=== PATIENT | female | born 1975 | race Two or more races ===

== ENCOUNTER 2025-07-31 06:56 | Outpatient (REF) | payer OTHER, SELFPAY ==
--- NOTE | ~2025-07-31 | US_ITS ---
Examination: US Extremity Nonvas Limited left Technique: Grayscale imaging was performed in the right axillary region INDICATION: Palpable lump in the right axilla Prior: None FINDINGS: Normal anatomic structures are identified without visible mass, fluid collection, or other abnormality. US/US Extremity Nonvas Limited LT IMPRESSION: Unremarkable left axillary ultrasound. If there is a convincing palpable mass, consider MRI without and with IV contrast to evaluate this region. Electronically signed by: Ellis Blake MD 07/31/2025 04:49 PM EDT
--- NOTE | ~2025-07-31 | US_ITS ---
Examination: US Extremity Nonvas Limited Rt Technique: Grayscale imaging was performed in the right axillary region INDICATION: Palpable lump in the right axilla Prior: None FINDINGS: Normal anatomic structures are identified without visible mass, fluid collection, or other abnormality. US/US Extremity Nonvas Limited RT IMPRESSION: Unremarkable right axillary ultrasound. Electronically signed by: Ellis Blake MD 07/31/2025 04:48 PM EDT
--- OUTSIDE RECORDS SUMMARY | 2025-07-31 06:59 | XMS_ITS | Encounter Summary ---
Author Organization [facility] Address [address] [place] [address] Phone Care Team Providers Care Correctional Cook Name Role Phone Frida Mercer MD Primary Care Provider + Josseline Adam CNP Primary Care Provider +[phone] Encounter Details Date Type Department Care Team (Late st Contact Info) Description 06/09/2022 Procedure Pass [address] [place] [address] Social History Tobacco Use Types Packs/Day Years Used Date Smoking Tobacco: Former Cigarettes 1 15 0 11/22/1991 - 11/22/2006 Smokeless Tobacco: Never Alcohol Use Standard Drinks/Week Comments Not Currently 0 (1 standard drink = 0.6 oz pur e alcohol) 1-2 drinks monthly Comments No Sex and Gender Information Value Date Recorded Sex Assigned at Female 11/04/2018 9:47 AM EST Legal Sex Female 9:32 PM EDT Gender Identity Female 11/04/2018 9:47 AM EST Sexual Orientation Queer 10/07/2020 11 :11 AM EST documented as of this encounter Plan of Treatment Upcoming Encounters Date Type Department Care Team (Late st Contact Info) Description 07/25/2025 Procedure Pass [address] [place] [address] 03/13/2026 1:45 PM EDT Appointment [address] [place] [address] Josseline Adam VARNISH FINISHER 15 [facility] 6 [place] [address] [email or web address] documented as of this encounter Visit Diagnoses Not on filedocumented in this encounter Care Teams Correctional Cook Relationship Specialty Start Date End Date Frida Mercer MD [address] [place] [address] PCP - General Family Medicine 04/05/18 07/24/25 Josseline Adam CNP [address] [place] [address] [email or web address] PCP - General Nurse Practitioner 07/25/25 documented as of this encounter Additional Source Comments The information contained in this document represents components of the legal health record. It is not the complete legal health record.[facility]
--- OUTSIDE RECORDS SUMMARY | 2025-07-31 06:59 | XMS_ITS | Encounter Summary ---
Author Organization [facility] Address [address] [place] [address] Phone Care Team Providers Care Servicing Manager Name Role Phone Frida Mercer MD Primary Care Provider + Josseline Adam CNP Primary Care Provider [phone] Encounter Details Date Type Department Care Team (Late st Contact Info) Description 03/21/2024 Ancillary Orders [facility], X-Ray - [address] [place] [address] Addison Nelson PA [address] [place] [address] Left knee pain, unspecified chronicity (Primary Dx) Social History Tobacco Use Types Packs/Day Years Used Date Smoking Tobacco: Former Cigarettes 1 15 0 11/22/1991 - 11/22/2006 Smokeless Tobacco: Never Alcohol Use Standard Drinks/Week Comments Not Currently 0 (1 standard drink = 0.6 oz pur e alcohol) 1-2 drinks monthly Education Answer Date Recorded Are you interested in more education? Not on effie e 03/19/2023 Are you concerned about learning? Not on file 03/19/2023 No 03/19/2023 No 03/19/2023 Digital Access Answer Date Recorded No 04/17/2023 No 04/17/2023 Reliable internet access at home? Not on file 04/17/2023 Device with a working camera? Not on file Comments No Sex and Gender Information Value Date Recorded Sex Assigned at Female 11/04/2018 9:47 AM EST Legal Sex Female 9:32 PM EDT Gender Identity Female 11/04/2018 9:47 AM EST Sexual Orientation Queer 10/07/2020 11 :11 AM EST documented as of this encounter Plan of Treatment Upcoming Encounters Date Type Department Care Team (Late st Contact Info) Description 07/25/2025 Procedure Pass [address] [place] [address] 03/13/2026 1:45 PM EDT Appointment [address] [place] [address] Josseline Adam, REPAIR WELDER 15 [facility], [facility] 6 [place] [address] documented as of this encounter Results * XR KNEE 4 OR MORE VIEWS (RIGHT) (03/21/2024 3:38 PM EDT) Anatomical Region Laterality Modality Knee Right Computed Radiogr aphy 03/23/2024 5:48 PM EDT Impressions 03/24/2024 8:45 AM EDT No explanation for pain. Narrative 03/24/2024 8:45 AM EDT XR KNEE 4 OR MORE VIEWS (RIGHT) Referring clinician's provided indication for this examination in [facility]: Pain COMPARISON: X-ray 04/05/2018. FINDINGS: Right Knee: Joint spaces well-maintained. No significant arthritic changes. No fracture, subluxation or dislocation. No evidence of a joint effusion. No other significant changes. Procedure Note Miles Chung MD - 03/24/2024 XR KNEE 4 OR MORE VIEWS (RIGHT) Referring clinician's provided indication for this examination in [facility]:Pain COMPARISON: X-ray 04/05/2018. FINDINGS: Right Knee: Joint spaces well-maintained. No significant arthriticchanges. No fracture, subluxation or dislocation. No evidence of a jointeffusion. No other significant changes. IMPRESSION: No explanation for pain. Addison ROBIN IMG XR LOWER EXTREMITY Final R esult documented in this encounter Visit Diagnoses Diagnosis Left knee pain, unspecified chronicity- Primary Left knee pain, unspecified chronicity documented in this encounter Care Teams Servicing Manager Relationship Specialty Start Date End Date Frida Mercer MD [address] [place] [phone] [email or web address] PCP - General Family Medicine 04/05/18 07/24/25 Josseline Adam CNP [address] [place] [address] [email or web address] PCP - General Nurse Practitioner 07/25/25 documented as of this encounter Additional Source Comments The information contained in this document represents components of the legal health record. It is not the complete legal health record.[facility]
--- OUTSIDE RECORDS SUMMARY | 2025-07-31 06:59 | XMS_ITS | Encounter Summary ---
Author Organization [facility] Address [address] [place] [address] Phone Care Team Providers Care Wool Hat Hydraulicker Name Role Phone Frida Mercer MD Primary Care Provider + Josseline Adam CNP Primary Care Provider [phone] Encounter Details Date Type Department Care Team (Late st Contact Info) Description 09/23/2020 Procedure Pass [address] [place] [address] Social History Tobacco Use Types Packs/Day Years Used Date Smoking Tobacco: Former Cigarettes 2006 Smokeless Tobacco: Never Alcohol Use Standard Drinks/Week Comments Yes 0 (1 standard drink = 0.6 oz [...] st Contact Info) Description 07/25/2025 Procedure Pass [address] [place] [address] 03/13/2026 1:45 PM EDT Appointment [address] [place] [address] Josesline Adam, INVESTOR RELATIONS ANALYST [address] [facility] 6 [place] [address] documented as of this encounter Visit Diagnoses Not on filedocumented in this encounter Care Teams Wool Hat Hydraulicker Relationship Specialty Start Date End Date Frida Mercer MD [address] [place] [address] PCP - General Family Medicine 04/05/18 07/24/25 Josseline Adam CNP [address] [place] [address] PCP - General Nurse Practitioner 07/25/25 documented as of this encounter Additional Source Comments The information contained in this document represents components of the legal health record. It is not the complete legal health record.[facility]
--- OUTSIDE RECORDS SUMMARY | 2025-07-31 06:59 | XMS_ITS | Encounter Summary ---
Author Organization [facility] Address [address] [place] [address] Phone Care Team Providers Care Weight Clerk Name Role Phone Frida Mercer MD Primary Care Provider + Josseline Adam CNP Primary Care Provider [phone] Encounter Details Date Type Department Care Team (Late st Contact Info) Description 06/17/2023 Procedure Pass [facility] - [address] [place] [address] Social History Tobacco Use Types Packs/Day Years [...] st Contact Info) Description 07/25/2025 Procedure Pass [address] [place] [address] 03/13/2026 1:45 PM EDT Appointment [address] [place] [address] Josseline Adam, BIN PILER 15 [facility], [facility] 6 [place] [address] documented as of this encounter Visit Diagnoses Not on filedocumented in this encounter Care Teams Weight Clerk Relationship Specialty Start Date End Date Frida Mercer MD [address] [place] [address] PCP - General Family Medicine 04/05/18 07/24/25 Josseline Adam BIN PILER [address] [place] [address] PCP - General Nurse Practitioner 07/25/25 documented as of this encounter Additional Source Comments The information contained in this document represents components of the legal health record. It is not the complete legal health record.[facility]
--- OUTSIDE RECORDS SUMMARY | 2025-07-31 06:59 | XMS_ITS | Encounter Summary ---
Author Organization [facility] Address [address] [address] Phone Care Team Providers Care Tactical/Mobile Watch Officer Name Role Phone Frida Mercer MD Primary Care Provider + Josseline Adam CNP Primary Care Provider [phone] Encounter Details Date Type Department Care Team (Late st Contact Info) Description 09/16/2020 Transcribe Orders Virtual Department 30 [place] [address] Frida Mercer MD [address] [place] [address] Pelvic and perineal pain (Primary Dx) Social History Tobacco Use Types Packs/Day Years Used Date Smoking Tobacco: Former Cigarettes 1 2006 Smokeless Tobacco: Never Alcohol Use Standard [...] st Contact Info) Description 07/25/2025 Procedure Pass [address] [place] [address] 03/13/2026 1:45 PM EDT Appointment [address] [place], [place] [address] Josseline Adam, BLACK ASH WORKER [address] [address] [email or web address] documented as of this encounter Results * US PELVIS TRANSABDOMINAL PLUS TRANSVAGINAL (10/07/2020 1:52 PM EST) Anatomical Region Laterality Modality Pelvis, Uterus/Adnexa Ultrasound 10/07/2020 2:35 PM EST Impressions 10/07/2020 2:48 PM EST 1. The endometrium is within the upper limits of normal in thickness and mildly heterogeneous possibly due to mild hyperplasia. This can be correlated clinically. 2. 9 mm left paraovarian cyst which may be clinically insignificant. 3. No clear explanation for pain. Narrative 10/07/2020 2:48 PM EST HISTORY: Pain for a few months. EXAM: Transabdominal and transvaginal pelvic ultrasounds. COMPARISON: None. FINDINGS: Uterus: Uterus is normal in size. Uterus is anteverted. It measures 9.1 cm x 4.9 cm x 3.7 cm. The endometrial stripe measures 10 mm in thickness. It is mildly heterogeneous. Trace of cystic change within the endometrium. Multiple small nabothian cysts within the cervix. Ovaries: The right ovary is normal in size and demonstrates a normal follicular pattern. It measures 3.7 cm x 1.6 cm x 1.5 cm. The left ovary measures 3.3 cm x 2.5 cm x 2.2 cm. There is a 9 mm anechoic cyst which appears separate from the left ovary in the adjacent adnexa. Normal arterial and venous blood flow demonstrated to both ovaries. Other: No evidence of free fluid. Procedure Note Miles Chung MD - 10/07/2020 HISTORY: Pain for a few months. EXAM: Transabdominal and transvaginal pelvic ultrasounds. COMPARISON: None. FINDINGS: Uterus: Uterus is normal in size. Uterus is anteverted. It measures 9.1cm x 4.9 cm x 3.7 cm. The endometrial stripe measures 10 mm in thickness.It is mildly heterogeneous. Trace of cystic change within the endometrium.Multiple small nabothian cysts within the cervix. Ovaries: The right ovary is normal in size and demonstrates a normalfollicular pattern. It measures 3.7 cm x 1.6 cm x 1.5 cm. The left ovarymeasures 3.3 cm x 2.5 cm x 2.2 cm. There is a 9 mm anechoic cyst whichappears separate from the left ovary in the adjacent adnexa. Normalarterial and venous blood flow demonstrated to both ovaries. Other: No evidence of free fluid. IMPRESSION: 1. The endometrium is within the upper limits of normal in thickness andmildly heterogeneous possibly due to mild hyperplasia. This can becorrelated clinically. 2. 9 mm left paraovarian cyst which may be clinically insignificant. 3. No clear explanation for pain. us Frida Mercer MD IMG US PELVIS Final Re sult documented in this encounter Visit Diagnoses Diagnosis Pelvic and perineal pain- Primary Pelvic and perineal pain documented in this encounter Care Teams Tactical/Mobile Watch Officer Relationship Specialty Start Date End Date Frida Mercer MD [address] [place] [phone] PCP - General Family Medicine 04/05/18 07/24/25 Josseline Adam CNP [address] [place] [address] PCP - General Nurse Practitioner 07/25/25 documented as of this encounter Additional Source Comments The information contained in this document represents components of the legal health record. It is not the complete legal health record.[facility]
--- OUTSIDE RECORDS SUMMARY | 2025-07-31 06:59 | XMS_ITS | Clinical Summary ---
Author Organization [facility] Address [address] [place] [address] Phone Care Team Providers Care Complaint Inspector Name Role Phone Josseline Adam CNP Primary Care Provider Allergies Active Allergy Reactions Criticality Noted Date Comments Morphine Nausea and/or Vomiting 11/08/2018 Medications albuterol 90 mcg/actuation inhaler Inhale 2 puffs into the lungs every 6 (six) hours as needed for wheezing. Active FLOVENT HFA 44 mcg/actuation inhaler 10/19/2018 Active YASMIN OROZCO [facility] Spcr 10/19/2018 Active acetaminophen (TYLENOL) 500 MG tablet Take 500 mg by mouth every 6 (six) hours as needed for pain (specific location in comments). Active acetaminophen (TYLENOL) 325 mg tablet Take 2 tablets (650 mg total) by mouth every 4 (four) hours as needed for mild pain. 11/10/2018 Active docusate sodium (COLACE) 100 MG capsule Take 1 capsule (100 mg total) by mouth 2 (two) times a day. 11/10/2018 Active aspirin 325 MG tablet Take 1 tablet (325 mg total) by mouth daily. 11/10/2018 Active Active Problems Problem Noted Date Diagnosed Date Closed fracture of proximal lateral malleolus of ankle with routine healing Encounters Date Type Department Care Team Description 07/25/2025 Transcribe Orders Virtual Department 30 [place] [address] Josseline Adam CNP Breast screening (Primary Dx) from Last 3 Months Family History Medical History Relation Comments Cancer Father Leukemia CLL Breast cancer Maternal Grandmother Cancer Sister bone cancer Relation Status Comments Father Maternal Grandmother Sister Social History Tobacco Use Types Packs/Day Years Used Date Smoking Tobacco: Former Cigarettes 1 15 0 11/22/1991 - 11/22/2006 Smokeless Tobacco: Never Tobacco Cessation:Counseling Given: Not Answered Alcohol Use Standard Drinks/Week Comments Not Currently [...] Orientation Queer 10/07/2020 11 :11 AM EST Last Filed Vital Signs Vital Sign Reading Time Taken Comments Blood Pressure 118/78 11/10/2018 7:00 PM EST Pulse 80 11/10/2018 7:00 PM EST Temperature 36.8 C (98.2 F) 11/10/2018 5:00 PM EST Respiratory Rate 20 11/10/2018 7:00 PM EST Oxygen Saturation 99% 11/10/2018 7:00 PM EST Inhaled Oxygen Concentration - - Weight 90.3 kg (199 lb) 12/20/2018 8:44 AM EST Height 182.9 cm (6' 0.01 ) 12/20/2018 8:44 AM ES T Body Mass Index 26.98 12/20/2018 8:44 AM EST Plan of Treatment Upcoming Encounters Date Type Department Care Team (Late st Contact Info) Description 07/25/[address] [place] [address] 03/13/2026 1:45 PM EDT Appointment [address] [place] [address] Josseline Adam, OFFSHORE WIND TURBINE TECHNICIAN 15 [facility], [facility] 6 [place] [address] [email or web address] Environmental Health Maintenance Due Date Last Done Comments Adult Td,Tdap Booster 1973 LIPID PANEL 1973 DEPRESSION SCREENING 1985 SMOKING Hx and SMOKELESS TOBACCO SCREENING 1986 HEPATITIS C SCREENING 1991 HIV ONE-TIME SCREENING (18-65 YEARS) 1991 PAP SMEAR 1994 COLOGUARD 2018 COLONOSCOPY 2018 COLORECTAL CANCER SCREENING 2018 FIT TEST 2018 FOBT 2018 SIGMOIDOSCOPY 2018 VIRTUAL COLONOSCOPY 2018 PNEUMOCOCCAL VACCINES (50+ years) (1 of 1 - PCV) 2023 ZOSTER VACCINES (1 of 2) 2023 INFLUENZA VACCINE (#1) 2025 COVID-19 VACCINE (3 - season) 2025 04/07/2021, 03/08/2021 MAMMOGRAM 07/23/2025 07/23/2023, 06/22, 10/24/2020, Additional history exists HEPATITIS A VACCINES Aged Out No long er eligible based on patient's age to complete this topic HIB VACCINES Aged Out No longer eligi ble based on patient's age to complete this topic MENINGOCOCCAL VACCINES (ACWY) Aged Out No longer eligible based on patient's age to complete this topic MENINGOCOCCAL VACCINES (B) Aged Out N o longer eligible based on patient's age to complete this topic Medical Devices Implanted Type Area Brand Marketing Coordinator Device Identifier Shelf Expiration Date Model / Serial / Lot Plate Bone 81mm Tubular One Third With Collar Lcp Stainless Steel 7 Hole Ea - [id number] Implanted:Qty: 1 on 11/10/2018 by Segundo Ty DO at [facility] [employer] Left: Ankle SYNTHES 11/21/2050 [id number] / / N/A Description:PLATE APART OF A STERILE KIT, NO LOT NUMBER AND NO EXPIRATION DATE Screw Bone 3.5x14mm Cortex Self Tapping Fully Threaded Hex Head S/S Ea - [id number] Implanted:Qty: 2 on 11/10/2018 by Segundo Ty DO at [facility] Left: Ankle SYNTHES 11/21/2099 [id number] / / N/A Screw Bone 3.5x16mm Cortex Self Tapping Fully Threaded Hex Head S/S Ea - [id number] Implanted:Qty: 1 on 11/10/2018 by Segundo Ty DO at [facility] Left: Ankle SYNTHES 11/21/2099 [id number] / / N/A Screw Bone 3.5x20mm Cortex Self Tapping Fully Threaded Hex Head S/S - [id number] Implanted:Qty: 2 on 11/10/2018 by Segundo Ty DO at [facility] Left: Ankle SYNTHES 11/21/2099 [id number] / / N/A Screw Bone 3.5x24mm Cortex Self Tapping Fully Threaded Hex Head S/S Ea - [id number] Implanted:Qty: 1 on 11/10/2018 by Segundo Ty DO at [facility] Left: Ankle SYNTHES 11/21/2099 [id number] / / N/A Procedures Procedure Name Priority Date/Time Associated Diagnosis Comments BI MAMMOGRAM SCREENING WITH TOMOSYNTHESIS WITH CAD (BILATERAL) Routine 07/23/2023 8:32 AM EDT Breast screening from Last 3 Months or Most Recently Relevant to Health Maintenance Results * BI MAMMOGRAM SCREENING WITH TOMOSYNTHESIS WITH CAD (BILATERAL) (07/23/2023 8:32 AM EDT) Anatomical Region Laterality Modality Breast Left, Breast Right, Breast Bilateral Bila teral Mammography 08/05/2023 1:58 PM EDT Impressions 08/05/2023 2:39 PM EDT No mammographic signs of malignancy. Annual screening is recommended. BI-RADS CATEGORY: 1 - Negative. DENSITY: There are scattered fibroglandular densities. Narrative 08/05/2023 2:39 PM EDT Bilateral mammography is performed in conjunction with computed aided detection. 3-D tomography along with 2-D C view imaging was also performed. Comparison made to previous dated as far back as 12/25/2012 and as recent as 07/07/2022. No suspicious masses, areas of architectural distortion or suspicious microcalcifications. Procedure Note Miles Chung MD - 08/05/2023 Bilateral mammography is performed in conjunction with computed aideddetection. 3-D tomography along with 2-D C view imaging was alsoperformed. Comparison made to previous dated as far back as 12/25/2012 andas recent as 07/07/2022. No suspicious masses, areas of architectural distortion or suspiciousmicrocalcifications. IMPRESSION: No mammographic signs of malignancy. Annual screening is recommended. BI-RADS CATEGORY: 1 - Negative. DENSITY: There are scattered fibroglandular densities. [place] [facility] Final Resul t from Last 3 Months or Most Recently Relevant to Health Maintenance Insurance [employer] TOTAL CHOICE INDEMNITY [employer] TOTAL CHOICE INDEMNITY [employer] TOTAL CHOICE INDEMNITY [employer] TOTAL CHOICE INDEMNITY [employer] TOTAL CHOICE INDEMNITY [employer] TOTAL CHOICE INDEMNITY [employer] TOTAL CHOICE INDEMNITY [employer] TOTAL CHOICE [place] [address] [place] [address] TOTAL CHOICE INDEMNITY [employer] Advance Directives For more information, please contact: [phone] (9AM - 5PM [facility], Wednesday-Wednesday) * Full Code (Presumed) (Latest Code Status on File) Date Activated Date Inactivated Comments 11/10/2018 2:27 PM 11/10/2018 9:30 PM Care Teams Complaint Inspector Relationship Specialty Start Date End Date Josseline Adam, KESHAWN [address] [place] [address] PCP - General Nurse Practitioner 07/25/25 Additional Source Comments The information contained in this document represents components of the legal health record. It is not the complete legal health record.[facility]
--- OUTSIDE RECORDS SUMMARY | 2025-07-31 06:59 | XMS_ITS | Encounter Summary ---
Author Organization [facility] Address [address] [place] [address] Phone Care Team Providers Care Immigration Lawyer Name Role Phone Frida Mercer MD Primary Care Provider + Josseline Adam CNP Primary Care Provider [phone] Encounter Details Date Type Department Care Team (Late st Contact Info) Description 11/10/2018 Procedure Pass OR Admitting Dept - Virtual Department 30 [place] [address] Social History Tobacco Use Types Packs/Day Years Used Date Smoking Tobacco: Former Cigarettes 2006 Smokeless Tobacco: Never Alcohol Use Standard Drinks/Week Comments Yes 0 (1 standard drink = 0.6 oz pur e alcohol) 1-2 drinks monthly Comments Unknown Sex and Gender Information Value Date Recorded Sex Assigned at Female 11/04/2018 9:47 AM EST Legal Sex Female 9:32 PM EDT Gender Identity Female 11/04/2018 9:47 AM EST Sexual Orientation Queer 10/07/2020 11 :11 AM EST documented as of this encounter Plan of Treatment Upcoming Encounters Date Type Department Care Team (Late Contact Info) Description 07/25/2025 Procedure Pass [address] [place] [address] 03/13/2026 1:45 PM EDT Appointment [address] [place] [address] Josseline Adam, PAIL TESTER [address] [address] documented as of this encounter Visit Diagnoses Not on filedocumented in this encounter Additional Health Concerns Infection Onset Date Last Indicated Resolved Time CoV-Risk 05/29/2020 05/29/2020 06/12/2020 1:24 AM EDT documented as of this encounter Care Teams Immigration Lawyer Relationship Specialty Start Date End Date Frida Mercer MD [address] [place] [address] PCP - General Family Medicine 04/05/18 07/24/25 Josseline Adam CNP [address] [place] [address] [email or web address] PCP - General Nurse Practitioner 07/25/25 documented as of this encounter Additional Source Comments The information contained in this document represents components of the legal health record. It is not the complete legal health record.[facility]
--- OUTSIDE RECORDS SUMMARY | 2025-07-31 06:59 | XMS_ITS | Encounter Summary ---
Author Organization [facility] Address [address] [place] [phone] Phone Care Team Providers Care Cosmetics Machine Operator Name Role Phone Frida Mercer MD Primary Care Provider + Josseline Adam CNP Primary Care Provider [phone] Encounter Details Date Type Department Care Team (Late st Contact Info) Description 04/05/2018 Ancillary Orders [facility], X-Ray - [address] [place] [address] Nata Rodriguez PA [address] [place] [address] [email or web address] Right knee pain, unspecified chronicity Social History Tobacco Use Types Packs/Day Years Used Date Smoking Tobacco: Never Assessed Comments Unknown Sex and Gender Information Value Date Recorded Sex Assigned at Female 11/04/2018 9:47 AM EST Legal Sex Female 9:32 PM EDT Gender Identity Female 11/04/2018 9:47 AM EST Sexual Orientation Queer 10/07/2020 11 :11 AM EST documented as of this encounter Plan of Treatment Upcoming Encounters Date Type Department Care Team (Late st Contact Info) Description 07/25/2025 Procedure Pass [address] [place] [address] 03/13/2026 1:45 PM EDT Appointment [address] [place] [address] Josseline Adam, RN ENDOCRINOLOGY 15 [facility], [address] [place] [address] [email or web address] documented as of this encounter Results * XR KNEE 4 OR MORE VIEWS (RIGHT) (04/05/2018 12:38 PM EDT) Anatomical Region Laterality Modality Knee Right Radiographic Karin ging 04/05/2018 2:25 PM EDT Impressions 04/05/2018 2:27 PM EDT Suggestion of prepatellar soft tissue swelling which can be correlated clinically with any signs or symptoms of bursitis. No other explanation for pain. POS - [id number] Narrative 04/05/2018 2:27 PM EDT HISTORY: Pain. COMPARISON: None. FINDINGS: Four views. Joint spaces are fairly well-maintained. No significant arthritic changes. No fractures or dislocations. No suspicious lytic or blastic lesions within the bones. No evidence of joint effusion. Suggestion of prepatellar soft tissue swelling Procedure Note Miles Richmond MD - 04/05/2018 HISTORY: Pain. COMPARISON: None. FINDINGS: Four views. Joint spaces are fairly well-maintained. No significant arthriticchanges. No fractures or dislocations. No suspicious lytic or blasticlesions within the bones. No evidence of joint effusion. Suggestion ofprepatellar soft tissue swelling IMPRESSION: Suggestion of prepatellar soft tissue swelling which can be correlatedclinically with any signs or symptoms of bursitis. No other explanationfor pain. POS - [id number] Nata ROBIN IMG XR LOWER EXTREMITY Lali l Result documented in this encounter Visit Diagnoses Diagnosis Right knee pain, unspecified chronicity Right knee pain, unspecified chronicity documented in this encounter Additional Health Concerns Infection Onset Date Last Indicated Resolved Time CoV-Risk 05/29/2020 05/29/2020 06/12/2020 1:24 AM EDT documented as of this encounter Care Teams Cosmetics Machine Operator Relationship Specialty Start Date End Date Frida Mercer MD [address] [place] [id number] [email or web address] PCP - General Family Medicine 04/05/18 07/24/25 Josseline Adam CNP [address] [place] [phone] [email or web address] PCP - General Nurse Practitioner 07/25/25 documented as of this encounter Additional Source Comments The information contained in this document represents components of the legal health record. It is not the complete legal health record.[facility]
--- OUTSIDE RECORDS SUMMARY | 2025-07-31 06:59 | XMS_ITS | Encounter Summary ---
Author Organization [facility] Address [address] [address] Phone Care Team Providers Care Laborer Starch Factory Name Role Phone Frida Mercer MD Primary Care Provider + Josseline Adam CNP Primary Care Provider [phone] Encounter Details Date Type Department Care Team (Late st Contact Info) Description 08/10/2019 Ancillary Orders Virtual Department 30 [place] [address] Frida Mercer MD [address] [place] [id number] Breast screening Social History Tobacco Use Types Packs/Day Years Used Date Smoking Tobacco: Former Cigarettes 1 - 2006 Smokeless Tobacco: Never Alcohol Use Standard [...] st Contact Info) Description 07/25/2025 Procedure Pass [facility] - [address] [place] [address] 03/13/2026 1:45 PM EDT Appointment [address] [place], [place] [address] Josseline Adam, VAN HELPER 15 [facility], [facility] 6 [place] [address] [email or web address] documented as of this encounter Results * BI MAMMOGRAM SCREENING WITH TOMOSYNTHESIS WITH CAD (BILATERAL) (08/11/2019 3:09 PM EDT) Anatomical Region Laterality Modality Breast Left, Breast Right, Breast Bilateral Bila teral Mammography 08/11/2019 3:14 PM EDT Impressions 08/11/2019 3:18 PM EDT No mammographic evidence of malignancy. Recommend routine annual surveillance. BI-RADS CATEGORY: 1 - Negative. DENSITY: The breast tissue is heterogeneously dense, an appearance which lowers the sensitivity of mammography. POS - [id number] Narrative 08/11/2019 3:18 PM EDT 44-year-old female with no current breast symptoms. Comparison made to previous on 02/17/2017 and as far back as 10/24/2013. Interpretation made in conjunction with computer-aided detection and tomosynthesis. The breasts are heterogeneously dense, which may obscure small masses. There are no suspicious masses, areas of architectural distortion, or suspicious clusters of microcalcifications. Procedure Note Jose Branham MD - 08/11/2019 44-year-old female with no current breast symptoms. Comparison made toprevious on 02/17/2017 and as far back as 10/24/2013. Interpretation madein conjunction with computer-aided detection and tomosynthesis. The breasts are heterogeneously dense, which may obscure small masses. There are no suspicious masses, areas of architectural distortion, orsuspicious clusters of microcalcifications. IMPRESSION: No mammographic evidence of malignancy. Recommend routine annualsurveillance. BI-RADS CATEGORY: 1 - Negative. DENSITY: The breast tissue is heterogeneously dense, an appearance whichlowers the sensitivity of mammography. POS - CDHMAMA us Frida Mercer MD IMG MG EXAMS Final Re sult documented in this encounter Visit Diagnoses Diagnosis Breast screening Breast screening, unspecified Breast screening Breast screening, unspecified documented in this encounter Additional Health Concerns Infection Onset Date Last Indicated Resolved Time CoV-Risk 05/29/2020 05/29/2020 06/12/2020 1:24 AM EDT documented as of this encounter Care Teams Laborer Starch Factory Relationship Specialty Start Date End Date Frida Mercer MD [address] [place] [phone] [email or web address] PCP - General Family Medicine 04/05/18 07/24/25 Josseline Adam, KESHAWN [address] [place] [phone] [email or web address] PCP - General Nurse Practitioner 07/25/25 documented as of this encounter Additional Source Comments The information contained in this document represents components of the legal health record. It is not the complete legal health record.[facility]
--- OUTSIDE RECORDS SUMMARY | 2025-07-31 06:59 | XMS_ITS | Encounter Summary ---
Author Organization [facility] Address [address] [address] Phone Care Team Providers Care Recreational Director Name Role Phone Frida Mercer MD Primary Care Provider + Josseline Adam CNP Primary Care Provider [phone] Encounter Details Date Type Department Care Team (Late st Contact Info) Description 09/23/2020 Ancillary Orders Virtual Department 30 [place] [address] Frida Mercer MD [address] [place] [address] Breast screening Social History Tobacco Use Types [...] st Contact Info) Description 07/25/2025 Procedure Pass [facility] - [address] [place] [address] 03/13/2026 1:45 PM EDT Appointment [address] [place], [place] [address] Josseline Adam, DRY YARD WORKER 15 [facility], [facility] 6 [place] [address] documented as of this encounter Results * BI MAMMOGRAM SCREENING WITH TOMOSYNTHESIS WITH CAD (BILATERAL) (10/24/2020 3:02 PM EST) Anatomical Region Laterality Modality Breast Left, Breast Right, Breast Bilateral Bila teral Mammography 10/24/2020 3:30 PM EST Impressions 10/24/2020 3:34 PM EST No findings suspicious for malignancy are identified. In the absence of a worrisome palpable abnormality, annual screening mammography is recommended. BI-RADS CATEGORY: 1 - Negative. DENSITY: There are scattered fibroglandular densities. Narrative 10/24/2020 3:34 PM EST COMPARISON: 10/24/2013 through 08/11/2019 Bilateral 3-D tomosynthesis with 2-D reconstructions in the CC and MLO projection. Computer-aided detection system also utilized. No new mass, asymmetry, architectural distortion or suspicious calcifications have become apparent on either side. Procedure Note Kyaw Hernandez MD - 10/24/2020 COMPARISON: 10/24/2013 through 08/11/2019 Bilateral 3-D tomosynthesis with 2-D reconstructions in the CC and MLOprojection. Computer-aided detection system also utilized. No new mass, asymmetry, architectural distortion or suspiciouscalcifications have become apparent on either side. IMPRESSION: No findings suspicious for malignancy are identified. In the absence of aworrisome palpable abnormality, annual screening mammography isrecommended. BI-RADS CATEGORY: 1 - Negative. DENSITY: There are scattered fibroglandular densities. Frida Mercer MD IMG MG EXAMS Final Re sult documented in this encounter Visit Diagnoses Diagnosis Breast screening Breast screening, unspecified Breast screening Breast screening, unspecified documented in this encounter Care Teams Recreational Director Relationship Specialty Start Date End Date Frida Mercer MD [address] [place] [phone] [email or web address] PCP - General Family Medicine 04/05/18 07/24/25 Josseline Adam CNP [address] [place] [address] [email or web address] PCP - General Nurse Practitioner 07/25/25 documented as of this encounter Additional Source Comments The information contained in this document represents components of the legal health record. It is not the complete legal health record.[facility]
--- OUTSIDE RECORDS SUMMARY | 2025-07-31 06:59 | XMS_ITS | Encounter Summary ---
Author Organization [facility] Address [address] [place] [phone] Phone Care Team Providers Care Demand Manager Name Role Phone Frida Mercer MD Primary Care Provider + Josseline Adam CNP Primary Care Provider [phone] Encounter Details Date Type Department Care Team (Late st Contact Info) Description 07/07/2022 Procedure Pass [address] [place] [address] Social History Tobacco Use Types Packs/Day Years [...] st Contact Info) Description 07/25/2025 Procedure Pass [address] [place] [address] 03/13/2026 1:45 PM EDT Appointment [address] [place] [address] Josseline Adam CNP 15 [facility] 6 [place] [address] [email or web address] documented as of this encounter Visit Diagnoses Not on filedocumented in this encounter Care Teams Demand Manager Relationship Specialty Start Date End Date Frida Mercer MD [address] [place] [address] [email or web address] PCP - General Family Medicine 04/05/18 07/24/25 Josseline Adam CNP [address] [place] [address] [email or web address] PCP - General Nurse Practitioner 07/25/25 documented as of this encounter Additional Source Comments The information contained in this document represents components of the legal health record. It is not the complete legal health record.[facility]
--- OUTSIDE RECORDS SUMMARY | 2025-07-31 06:59 | XMS_ITS | Encounter Summary ---
Author Organization [facility] Address [address] [address] Phone Care Team Providers Care Regulatory Affairs Manager Name Role Phone Frida Mercer MD Primary Care Provider + Josseline Adam CNP Primary Care Provider [phone] Encounter Details Date Type Department Care Team (Late st Contact Info) Description 06/17/2023 Transcribe Orders Virtual Department 30 [place] [address] Nata Rodriguez PA [address] [place] [address] [email or web address] Breast screening (Primary Dx) Social History Tobacco Use Types [...] st Contact Info) Description 07/25/2025 Procedure Pass [address] [place] [address] 03/13/2026 1:45 PM EDT Appointment [address] [place] [address] Josseline Adam, HIM SPECIALIST [address] [facility], [facility] 6 [place] [address] [email or web address] documented as of this encounter Results * [...] Negative. DENSITY: There are scattered fibroglandular densities. us Nata ROBIN IMG MG EXAMS Final Resul t documented in this encounter Visit Diagnoses Diagnosis Breast screening- Primary Breast screening, unspecified Breast screening Breast screening, unspecified documented in this encounter Care Teams Regulatory Affairs Manager Relationship Specialty Start Date End Date Frida Mercer MD [address] [place] [address] [email or web address] PCP - General Family Medicine 04/05/18 07/24/25 Josseline Adam CNP [address] [place] [address] [email or web address] PCP - General Nurse Practitioner 07/25/25 documented as of this encounter Additional Source Comments The information contained in this document represents components of the legal health record. It is not the complete legal health record.[facility]
== END 2025-07-31 06:57 | disposition home or self-care (01) ==
LOC: HO.UMASIMG 06:56
PROVIDERS: Visit Provider Emergency Medicine
DX: R59.0 Localized enlarged lymph nodes (principal)
CPT/HCPCS: 76882

== ENCOUNTER → 2025-07-31 15:39 | Outpatient (BNV) | payer OTHER, SELFPAY | PROVIDERS: Visit Provider Radiology Diagnostic Radiology | DX: N63.31 Unspecified lump in axillary tail of the right breast (principal); N63.32 Unspecified lump in axillary tail of the left breast | CPT/HCPCS: 76882 ==